=== PATIENT | female | born 1975 | race Caucasian/White ===

== ENCOUNTER 2016-09-21 11:04 | Emergency (ER) | payer BC ==
[~2016-09-21] VITALS: Ht 165.1 cm; Wt 113.5 kg
[2016-09-21 14:05] LABS: HEMATOCRIT 26.2 % (36.0-46.0); MCH 25.9 PG (29.0-34.0); MCHC 31.7 G/DL (30.0-36.0); MCV 81.9 FL (83-99); MEAN PLAT.VOLUME 8.9 uM^3 (9.5-12.4); PLATELET COUNT 473 K/uL (156-360); RBC DIS.WIDTH-SD 43.8 % (39-53); WHITE BLOOD COUNT 10.9 K/uL (4.1-10.2)
[2016-09-21 14:13] LABS: CHLORIDE 103 mEq/L (99-109); POTASSIUM 3.6 mEq/L (3.7-5.4); SODIUM 139 mEq/L (136-147)
[2016-09-21 14:15] LABS: GLUCOSE 91 mg/dL (70-99)
[2016-09-21 14:16] LABS: ANION GAP 10 MEQ/L (2-14)
[2016-09-21 14:17] LABS: TOTAL BILIRUBIN 0.6 mg/dL (0.0-1.0)
[2016-09-21 14:18] LABS: ALKALINE PHOSPHATASE 74 IU/L (3-129)
[2016-09-21 14:19] LABS: GFR ESTIMATE (CALCULATED) > 59 mL/min/
[2016-09-21 14:20] LABS: UREA NITROGEN (BUN) 10 mg/dL (9-23)
[2016-09-21 18:38] VITALS: BP 116/75
== END 2016-09-21 18:39 | disposition short-term general hospital (02) ==
LOC: EME 11:04
PROVIDERS: Physician Assistant Medical
DX: N99.820 Postprocedural hemorrhage of a genitourinary system organ or structure following a genitourinary system procedure (principal); T81.4XXA Infection following a procedure, initial encounter; I10 Essential (primary) hypertension; Z88.2 Allergy status to sulfonamides; Z88.0 Allergy status to penicillin
CPT/HCPCS: 74177; 80053; 85027; 86850; 86900; 86901; 87040; 99281; 99285; J1956; J7030; S0030